=== PATIENT | male | born 1995 | race Caucasian/White ===

== ENCOUNTER 2022-08-30 12:41 | Outpatient (CLI) | payer OTHER ==
--- NOTE | 2022-09-01 08:59 | MRI Report ---
PROCEDURE: KNEE WO - RT INDICATIONS: BILATERAL KNEE PAIN TECHNIQUE: Noncontrast sagittal PD fast spin echo and T2 fast spin echo with fat saturation, sagittal 3-D gradie nt sequence with fat saturation; coronal T1 spin echo and PD fast spin echo with fat saturation, and axial PD fast spin echo with fat saturation through the knee. COMPARISON: None. FINDINGS: Image quality: Excellent. Menisci: Vague linear oblique high T2 signal intensity horizontally and vertically traverses the post erior horn medial meniscus, demonstrating inferior articular surface extension. There is partial deta chment of the peripheral third of the posterior horn medial meniscus. Mild ill-defined T2 signal elev ation at the posterior meniscocapsular junction of the posterior horn medial meniscus. Lateral menisc us is intact. Cruciate ligaments: The anterior and posterior cruciate ligaments appear intact. Medial structures: The medial collateral ligament appears intact. Visualized portions of the pes an serinus tendons appear normal. No abnormal bursal fluid. Lateral structures: The lateral collateral ligament, long and short heads of the biceps femoris tend on appear intact. The popliteus tendon appears normal. Iliotibial band appears normal. Anterior structures: The quadriceps and patellar tendons appear intact. Patellar alignment is ramon l. No femoral trochlear dysplasia or ventral trochlear prominence. No edema in the infrapatellar fa t pad. Bones and cartilage: No bone marrow contusions or fractures. The cartilage of the medial and latera l femorotibial compartments, as well as the patellofemoral compartment, appears normal in thickness. Joint space: There is a small knee joint effusion and a trace Mcknight's cyst. Normal appearing synovi al plicae are incidentally noted. IMPRESSION: 1. Medial meniscal tearing and partial detachment as described above associated with low-grade menisc ocapsular junction injury. 2. Small knee joint effusion and trace Mcknight's cyst. Reviewed by: Narda Gallego MD on 09/01/2022 8:57 AM PST Approved by: Narda Gallego MD on 09/01/2022 8:57 AM PST Station ID: [id number]
--- NOTE | 2022-09-01 09:02 | MRI Report ---
PROCEDURE: KNEE WO - LT INDICATIONS: BILATERAL KNEE PAIN TECHNIQUE: Noncontrast sagittal PD fast spin echo and T2 fast spin echo with fat saturation, sagittal 3-D gradie nt sequence with fat saturation; coronal T1 spin echo and PD fast spin echo with fat saturation, and axial PD fast spin echo with fat saturation through the knee. COMPARISON: None. FINDINGS: Image quality: Excellent. Menisci: There is vague linear oblique high T2 signal intensity traversing the medial meniscal body a nd posterior horn, demonstrating inferior articular surface extension. Partial detachment of the mya pheral third of the posterior horn medial meniscus. Mild T2 signal elevation at the posterior menisco capsular junction of the posterior horn medial meniscus. Lateral meniscus is intact. Cruciate ligaments: The anterior and posterior cruciate ligaments appear intact. Medial structures: The medial collateral ligament appears intact. Visualized portions of the pes ans erinus tendons appear normal. No abnormal bursal fluid. Lateral structures: The lateral collateral ligament, long and short heads of the biceps femoris tend on appear intact. The popliteus tendon appears normal. Iliotibial band appears normal. Anterior structures: The quadriceps and patellar tendons appear intact. Patellar alignment is ramon l. No femoral trochlear dysplasia or ventral trochlear prominence. No edema in the infrapatellar fa t pad. Bones and cartilage: No bone marrow contusions or fractures. There is an incompletely visualized cor tically based heterogeneous signal intensity within the posterior aspect of the distal femur medially , measuring roughly 20 mm transverse by at least 25 mm craniocaudal and demonstrating a thin surround ing low T2 intensity rim. There is articular cartilage ablation overlying the patellar apex associate d with a small, roughly 2 mm diameter focal high-grade articular cartilage defect overlying the daorno lar apex. Joint space: There is a small knee joint effusion and a moderate Mcknight's cyst. Normal appearing syn ovial plicae are incidentally noted. IMPRESSION: 1. Posterior horn medial meniscal tearing and detachment associated with low-grade meniscocapsular ju nction injury. 2. Articular cartilage loss overlying the patellar apex. 3. Knee joint effusion and Mcknight's cyst. 4. 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 Reviewed by: Narda Gallego MD on 09/01/2022 9:00 AM PST Approved by: Narda Gallego MD on 09/01/2022 9:00 AM PST Station ID: [id number]
== END 2022-08-30 12:42 | disposition home or self-care (01) ==
LOC: DI 12:41
PROVIDERS: ATTEND Student in an Organized Health Care Education/Training Program
DX: S83.241A Other tear of medial meniscus, current injury, right knee, initial encounter (principal); M25.461 Effusion, right knee; M71.21 Synovial cyst of popliteal space [Baker], right knee; S83.242A Other tear of medial meniscus, current injury, left knee, initial encounter; M25.462 Effusion, left knee; M71.22 Synovial cyst of popliteal space [Baker], left knee

== ENCOUNTER 2023-02-04 10:37 | Outpatient (CLI) | payer OTHER ==
--- NOTE | 2023-02-04 17:11 | XRAY Report ---
PROCEDURE: Hand 3 View LT INDICATIONS: TENDINITIS,LEFT THUMB/HEADACHE UNSPECIFIED TECHNIQUE: 3 views of the hand(s) acquired. COMPARISON: None. FINDINGS: Bones: No fractures or dislocations. No suspicious bony lesions. Soft tissues: No suspicious soft tissue calcifications or masses. IMPRESSION: No acute bony abnormality. No gross bony erosive changes. No gross soft tissue abnormalities. Reviewed by: Jesus Lagunas MD on 02/04/2023 5:10 PM PDT Approved by: Jesus Lagunas MD on 02/04/2023 5:10 PM PDT Station ID: [id number]
== END 2023-02-04 10:38 | disposition home or self-care (01) ==
LOC: DI 10:37
PROVIDERS: ATTEND Registered Nurse
DX: M77.9 Enthesopathy, unspecified (principal); M25.542 Pain in joints of left hand